=== PATIENT | female | born 1960 | race Caucasian/White ===

== ENCOUNTER → 2016-12-30 | Outpatient (CLI) | payer MEDICARE ==
[~2016-12-30] MED LIST: ASPIR 8181 MG PO; DILTIAZEM 24HR180 MG PO; LISINOPRIL5 MG PO; NEURONTIN 300300 MG PO; NORCO 10-325 T1 EACH PO; TIZANIDINE HCL4 MG PO; VISTARIL25 MG PO; VITAMIN D35000 UNIT PO; WELLBUTRIN SR100 MG PO
== END ==
LOC: HEART 5 08:11
DX: I47.1 Supraventricular tachycardia (principal); R07.9 Chest pain, unspecified; R06.00 Dyspnea, unspecified; R00.2 Palpitations; R94.39 Abnormal result of other cardiovascular function study
CPT/HCPCS: 78452; A9502; J2785

== ENCOUNTER → 2020-12-29 | Outpatient (CLI) | payer MEDICARE, OTHER ==
[2020-12-29 13:18] LABS: HEMOGLOBIN 12.2 gm/dl (12.3-15.3); RED BLOOD COUNT 3.92 M/UL (4.00-5.10); WHITE BLOOD COUNT 3.9 K/UL (4.5-11.0)
[2020-12-29 13:46] LABS: BUN/CREATININE RATIO 14 (0-10)
[2020-12-30 07:11] LABS: VITAMIN D, 25-HYDROXY 38.3 ng/mL (30.0-100.0)
[2020-12-30 08:14] LABS: THYROXINE (T4) 7.2 ug/dL (4.5-12.0)
== END ==
LOC: LAB 11:49
PROVIDERS: Nurse Practitioner
DX: E03.9 Hypothyroidism, unspecified (principal); E55.9 Vitamin D deficiency, unspecified; I10 Essential (primary) hypertension; E78.5 Hyperlipidemia, unspecified; R53.83 Other fatigue
CPT/HCPCS: 36415; 80053; 80061; 81001; 84436; 84443; 84480; 85025

== ENCOUNTER → 2021-04-07 | Outpatient (CLI) | payer MEDICARE, OTHER ==
[2021-04-07 12:34] LABS: HEMOGLOBIN 12.6 gm/dl (12.3-15.3); RED BLOOD COUNT 4.05 M/UL (4.00-5.10); WHITE BLOOD COUNT 3.8 K/UL (4.5-11.0)
== END ==
LOC: LAB 11:20
PROVIDERS: Nurse Practitioner
DX: E78.5 Hyperlipidemia, unspecified (principal); D64.9 Anemia, unspecified
CPT/HCPCS: 36415; 80061; 85025

== ENCOUNTER 2021-08-23 21:24 | Emergency (ER) | payer MEDICARE, MEDICAID ==
[2021-08-23 22:37] LABS: HEMOGLOBIN 12.8 gm/dl (12.3-15.3); RED BLOOD COUNT 4.12 M/UL (4.00-5.10); WHITE BLOOD COUNT 6.4 K/UL (4.5-11.0)
[2021-08-23 23:39] LABS: BUN/CREATININE RATIO 30 (0-10)
== END 2021-08-24 01:25 | disposition home or self-care (01) ==
LOC: ER1 21:24
PROVIDERS: Physician Assistant Medical
DX: R00.2 Palpitations (principal); I48.91 Unspecified atrial fibrillation; Z79.01 Long term (current) use of anticoagulants
CPT/HCPCS: 71045; 80053; 82550; 82553; 83735; 83874; 84439; 84443; 84484; 85025; 93005

== ENCOUNTER → 2021-12-22 | Outpatient (CLI) | payer MEDICARE ==
[2021-12-22 10:51] LABS: HEMOGLOBIN 11.8 gm/dl (12.3-15.3); RED BLOOD COUNT 3.82 M/UL (4.00-5.10); WHITE BLOOD COUNT 4.1 K/UL (4.5-11.0)
[2021-12-22 11:15] LABS: BUN/CREATININE RATIO 21 (0-10)
[2021-12-23 08:53] LABS: VITAMIN D, 25-HYDROXY 43.6 ng/mL (30.0-100.0)
[2021-12-23 10:57] LABS: THYROXINE (T4) 7.6 ug/dL (4.5-12.0)
== END ==
LOC: LAB 10:10
PROVIDERS: Nurse Practitioner Family
DX: I10 Essential (primary) hypertension (principal); E78.5 Hyperlipidemia, unspecified; R53.83 Other fatigue; E55.9 Vitamin D deficiency, unspecified
CPT/HCPCS: 36415; 80053; 80061; 81001; 84436; 84443; 84480; 85025

== ENCOUNTER → 2022-02-03 | Outpatient (CLI) | payer MEDICARE, OTHER ==
[2022-02-03 11:18] LABS: HEMOGLOBIN 11.8 gm/dl (12.3-15.3); RED BLOOD COUNT 3.85 M/UL (4.00-5.10); WHITE BLOOD COUNT 4.1 K/UL (4.5-11.0)
[2022-02-03 11:41] LABS: BUN/CREATININE RATIO 21 (0-10)
== END ==
LOC: LAB 10:13
PROVIDERS: Nurse Practitioner
DX: D64.9 Anemia, unspecified (principal); E83.51 Hypocalcemia
CPT/HCPCS: 36415; 80053; 85025